=== PATIENT | female | born 1950 | race Caucasian/White ===

== ENCOUNTER 2025-01-18 10:07 | Outpatient (CLI) | payer MEDICARE, BC | END 2025-01-18 10:08 | disposition home or self-care (01) | LOC: CSHCT 10:07 | PROVIDERS: ATTEND Student in an Organized Health Care Education/Training Program | DX: Z12.2 Encounter for screening for malignant neoplasm of respiratory organs (principal); Z87.891 Personal history of nicotine dependence; Z87.09 Personal history of other diseases of the respiratory system; J44.89 Other specified chronic obstructive pulmonary disease | CPT/HCPCS: 71271; 94060; 94664; 94760 ==